=== PATIENT | female | born 1935 | race Caucasian/White ===

== ENCOUNTER 2021-10-23 11:44 | Observation (INO) ==
[2021-10-23] MEDS ORDERED: Al Hydrox/Mg Hydrox/Simet LIQ 30 ML UDC PO ONE (12:36)
[2021-10-23 13:20] LABS: ABS Lymphocytes 0.9 10^3/ul (1.0-4.8); ABS Monocytes 0.6 10^3/ul (0-0.8); ABS Neutrophils 4.4 10^3/ul (1.5-7.7); Eosinophil % 0.1 %; Hematocrit 33 % (35-47); Lymphocyte % 15.2 %; Mean Corpuscular HGB Conc 33 g/dL (31-36); Mean Corpuscular Hemoglobin 31 pg (27-31); Mean Corpuscular Volume 92 fL (80-97); Mean Platelet Volume 7.5 fL (7.4-10.4); Platelet Count 214 10^3/uL (150-450); Red Blood Count 3.62 10^6 /uL (3.70-4.87); Red Cell Distribution Width 14 % (10-15); White Blood Count 5.9 10^3/uL (3.5-10.8)
[2021-10-23 13:31] LABS: INR 0.98 (0.86-1.15)
[2021-10-23 13:32] LABS: Albumin 3.5 g/dL (3.2-5.2); Anion Gap 6 mmol/L (2-11); CO2 Carbon Dioxide 31 mmol/L (22-32); Calcium 9.2 mg/dL (8.6-10.3); Chloride 100 mmol/L (101-111); Magnesium 1.8 mg/dL (1.9-2.7); Potassium 4.6 mmol/L (3.5-5.0); Sodium 137 mmol/L (135-145)
[2021-10-23 13:38] LABS: ALT 8 U/L (7-52); AST 16 U/L (13-39); Albumin/Globulin Ratio 1.2 (1-3); Alkaline Phosphatase 56 U/L (35-149); Blood Urea Nitrogen 26 mg/dL (6-24); C Reactive Protein 82.03 mg/L (<8.01); Globulin 2.9 g/dL (2-4); Glucose 92 mg/dL (70-100); Lipase 14 U/L (11.0-82.0); Total Protein 6.4 g/dL (6.4-8.9); Uric Acid 5.9 mg/dL (2.3-6.6); eGFR CKD-EPI 34.6 (>60)
[2021-10-23 13:41] LABS: Troponin I 0.05 ng/mL (<0.03)
[2021-10-23 14:39] LABS: Erythrocyte Sed Rate 46 mm/Hr (0-29)
[2021-10-23] MEDS ORDERED: Magnesium Hydroxide LIQ 30 ML UDC PO PRN (16:12)
[2021-10-23] MEDS ORDERED: Albuterol HFA INHALER 8 gm MDI INH PRN (16:18)
[2021-10-23] MEDS ORDERED: TAPENTADOL 100 MG PO PRN (16:18)
[2021-10-23] MEDS ORDERED: Vancomycin 1,000 MG in NS 0.9% 250 ml 250 ML IVPB ONE (17:44)
[2021-10-23] MEDS ORDERED: Vancomycin per Pharmacy 1 EA NOTE FOLLOW UP SCH (18:00)
[2021-10-23] MEDS ORDERED: Vancomycin 1,250 MG in NS 0.9% 250 ml 250 ML IVPB ONE (18:00)
[2021-10-23] MEDS ORDERED: NS 0.9% 250 ml 250 ML ONE (18:17)
[2021-10-23 18:27] LABS: Troponin I 0.05 ng/mL (<0.03)
[2021-10-23 22:00] LABS: Troponin I 0.05 ng/mL (<0.03)
[2021-10-23] MEDS ORDERED: PTO:Albuterol HFA INHALER 8 gm MDI INH PRN (23:45)
[2021-10-24 01:30] LABS: Urine Appearance Clear; Urine Bilirubin Negative (Negative); Urine Blood Negative (Negative); Urine Color Straw; Urine Glucose Negative (Negative); Urine Ketones Negative (Negative); Urine Nitrite Negative (Negative); Urine Protein Negative (Negative); Urine Specific Gravity 1.006 (1.002-1.030); Urine Urobilinogen Negative (Negative)
[2021-10-24 05:38] LABS: ABS Monocytes 0.6 10^3/ul (0-0.8); ABS Neutrophils 3.4 10^3/ul (1.5-7.7); Eosinophil % 0.1 %; Hematocrit 34 % (35-47); Hemoglobin 11.4 g/dL (12.0-16.0); Lymphocyte % 20.2 %; Mean Corpuscular HGB Conc 33 g/dL (31-36); Mean Corpuscular Hemoglobin 31 pg (27-31); Mean Corpuscular Volume 92 fL (80-97); Mean Platelet Volume 7.4 fL (7.4-10.4); Platelet Count 214 10^3/uL (150-450); Red Blood Count 3.69 10^6 /uL (3.70-4.87); Red Cell Distribution Width 14 % (10-15)
[2021-10-24 05:56] LABS: Calcium 9.3 mg/dL (8.6-10.3); Potassium 4.5 mmol/L (3.5-5.0); eGFR CKD-EPI 37.3 (>60)
[2021-10-24] MEDS ORDERED: ASCORBIC ACID 100 MG PO SCH (09:00)
[2021-10-24] MEDS ORDERED: Aspirin EC 81 mg TAB.EC (enteric coated) PO SCH (09:00)
[2021-10-24] MEDS: Tiotropium Brom/Olodaterol MDI INH SCH ×2 (13:06→13:15)
[2021-10-24] MEDS ORDERED: Vancomycin 750 MG in NS 0.9% 250 ML IVPB SCH (16:00)
[2021-10-24 16:28] VITALS: BP 110/93
[2021-10-26] MEDS ORDERED: Vancomycin Trough Check NOTE FOLLOW UP ONE (15:30)
== END 2021-10-24 18:25 | disposition home or self-care (01) ==
LOC: EDHOLD 11:44 → ED 11:44 → SUATTDRO 16:28 → MEDTELE 20:30
PROVIDERS: ADMIT Hospitalist; ATTEND Hospitalist

== ENCOUNTER 2024-08-11 08:32 | Inpatient (IN) ==
[2024-08-11 09:36] LABS: Venous Bicarbonate HCO3 23.9 mmol/L (24-28)
[2024-08-11 09:49] LABS: PCO2 Arterial 28 mmHg (35-45); PO2 Arterial 292 mmHg (80-100)
[2024-08-11 10:01] LABS: Albumin 2.9 g/dL (3.2-5.2); Albumin/Globulin Ratio 0.9 (1-3); Calcium 8.6 mg/dL (8.6-10.3); Creatinine, Serum 4.48 mg/dL (0.51-0.95); Globulin 3.2 g/dL (2-4); Hematocrit 33.8 % (35-45); Hemoglobin 10.6 g/dL (11.5-14.3); Mean Corpuscular Hemoglobin 32.2 pg (27-33); Mean Corpuscular Hgb Conc 31.5 g/dL (31-36); Mean Corpuscular Volume 102.3 fL (80-97); Potassium 4.1 mmol/L (3.5-5.0); Total Bilirubin 0.8 mg/dL (0.2-1.0); Total Protein 6.1 g/dL (6.4-8.9); White Blood Count 2.4 10^3/uL (3.8-11.8); eGFR CKD-EPI 8.9 (>60)
[2024-08-11] MEDS: Iodixanol 320 (CONTRAST) 100 ML SDV IV ONE (10:17)
[2024-08-11] MEDS: Dextrose 50% Syringe 50 ml 25 GM/50 ML SYRINGE IV PUSH ONE (10:19)
[2024-08-11] MEDS: Digoxin IV 0.5 MG/2 ML AMP (0.25 MG/ML) IV SLOW PU ONE (11:11)
[2024-08-11 11:17] LABS: Mean Platelet Volume 7.4 fL (7.5-11.2); Platelet Count 274 10^3/uL (150-450)
[2024-08-11 11:18] LABS: High Sensitivity Troponin 1 Hr 1501 pg/mL (<15)
[2024-08-11 11:22] LABS: ABS Lymphocytes 0.3 10^3/uL (1.0-4.8); ABS Neutrophils 2.1 10^3/uL (1.5-7.6); ABS Nucleated RBC 0.06 10^3/ul; Eosinophil % 0.3 %; Lymphocyte % 10.6 %; Nucleated Red Blood Cells % 2.3 %/100WBC (0.0-0.8)
[2024-08-11 13:07] LABS: Magnesium 1.3 mg/dL (1.9-2.7); Phosphorus 3.9 mg/dL (2.5-5.0)
[2024-08-11] MEDS: Thiamine 100 MG/ML 2 ml VIAL 100 MG in NS 0.9% 50 ML 50 ML IV SCH (14:28)
[2024-08-11] MEDS: Magnesium Sulf 4 GM/100 ML IV 4,000 MG/100 ML BAG IVPB ONE (14:45)
[2024-08-11] MEDS: Metoprolol Tartrate 5 mg VIAL 5 ml VIAL (1 mg/ml) IV ONE (14:45)
[2024-08-11] MEDS: Sulfur Hexaflouride MICROSPHR 25 MG VIAL IV PRN (15:45)
[2024-08-11 16:00] LABS: High Sensitivity Troponin 3 Hr 3312 pg/mL (<15)
[2024-08-11] MEDS: Norepinephrine 4 MG/250mL D5W 4,000 MCG/250 ML BAG IV ONE (16:48)
[2024-08-11] MEDS: Lidocaine 1% MPF 5 ML VIAL INJ ONE (16:48)
[2024-08-11] MEDS: Norepinephrine 4 MG/250mL NS 4,000 MCG/250 ML BAG IV SCH (16:48)
[2024-08-11] MEDS ORDERED: Atropine 1% (ORAL/SL) 15 ML BTL SL PRN (19:10)
[2024-08-11] MEDS ORDERED: Ondansetron ODT 4 mg TAB 4 MG TAB SL PRN (19:10)
[2024-08-11] MEDS ORDERED: Lorazepam PYXIS KEY PRN (19:17)
[2024-08-11] MEDS: Morphine 10 MG/ML VIAL (1 ml) IV SCH (19:34)
[2024-08-11] MEDS: LORazepam 2 mg VIAL 1 ml IV PUSH SCH (19:34)
[2024-08-11] MEDS: Scopolamine 1 mg/72hr PATCH TRANSDERM SCH (19:35)
[2024-08-11] MEDS: cefTRIAXone 2 gm/50 mL D5W 2 GM/50 ML BAG IV SCH (20:19)
[2024-08-11 20:24] VITALS: BP 83/55
[2024-08-12] MEDS ORDERED: CMC:FLUTICAS/UMECLI/VILANT 200-62.5-25 MDI (NF) INH SCH (09:00)
== END 2024-08-11 21:07 | disposition expired | DRG 311 ==
LOC: ED 08:32 → EDHOLD 11:29 → ICU 14:21
PROVIDERS: ADMIT Internal Medicine Critical Care Medicine; ATTEND Internal Medicine Critical Care Medicine